=== PATIENT | male | born 1980 | race Two or more races ===

== ENCOUNTER 2020-09-16 20:37 | Emergency (ER) | payer MEDICAID ==
[~2020-09-16] VITALS: Ht 172.7 cm; Wt 86.2 kg
[2020-09-16 20:46] VITALS: BP 142/85
== END 2020-09-16 22:12 | disposition left against medical advice (07) ==
LOC: ER 20:44
DX: S61.214A Laceration without foreign body of right ring finger without damage to nail, initial encounter (principal); Z53.21 Procedure and treatment not carried out due to patient leaving prior to being seen by health care provider; X58.XXXA Exposure to other specified factors, initial encounter; Y93.89 Activity, other specified; Y92.89 Other specified places as the place of occurrence of the external cause; Y99.8 Other external cause status
CPT/HCPCS: 73130

== ENCOUNTER 2020-09-17 07:44 | Emergency (ER) | payer MEDICAID ==
[~2020-09-17] VITALS: Ht 172.7 cm; Wt 86.2 kg
[2020-09-17 08:15] VITALS: BP 150/75
== END 2020-09-17 09:03 | disposition home or self-care (01) ==
LOC: ER 07:44
DX: S61.212D Laceration without foreign body of right middle finger without damage to nail, subsequent encounter (principal); X58.XXXD Exposure to other specified factors, subsequent encounter
CPT/HCPCS: 12001

== ENCOUNTER 2023-09-21 16:00 | Emergency (ER) | payer MEDICAID ==
[~2023-09-21] VITALS: Ht 172.7 cm; Wt 91.5 kg
[2023-09-21] MEDS ORDERED: IBUP-1455 PO (18:41)
[2023-09-21] MEDS ORDERED: ACET500T58 PO (18:41)
[2023-09-21] MEDS: TETANUS-DIPTH-ACEL PERTUSSIS 0.5ML SYR Tdap IM ONE (20:34)
[2023-09-21 20:40] VITALS: BP 130/81; PULSE 76; RESP 18; TEMP 98.1; O2SAT 92
== END 2023-09-21 20:43 | disposition home or self-care (01) ==
LOC: ER 16:00
DX: S01.81XA Laceration without foreign body of other part of head, initial encounter (principal); W22.8XXA Striking against or struck by other objects, initial encounter; Y93.89 Activity, other specified; Y92.89 Other specified places as the place of occurrence of the external cause; Y99.8 Other external cause status
CPT/HCPCS: 12011; 90471; 90715

== ENCOUNTER 2024-02-17 11:33 | Emergency (ER) | payer MEDICAID ==
[~2024-02-17] VITALS: Ht 172.7 cm; Wt 87.9 kg
[~2024-02-17 11:33] MED LIST: ACET500T58 PO; IBUP-1455 PO
[2024-02-17 12:10] VITALS: BP 157/79; PULSE 88; RESP 17; TEMP 97.7; O2SAT 97
[2024-02-17] MEDS: LIDOCAINE 1% HCL (LOCAL ANESTH.) INJ 20ML MDV IJ ONE (12:33)
== END 2024-02-17 12:35 | disposition home or self-care (01) ==
LOC: ER 11:33
DX: S61.512A Laceration without foreign body of left wrist, initial encounter (principal); Z79.899 Other long term (current) drug therapy; W45.8XXA Other foreign body or object entering through skin, initial encounter; Y93.89 Activity, other specified; Y92.096 Garden or yard of other non-institutional residence as the place of occurrence of the external cause; Y99.8 Other external cause status
CPT/HCPCS: 12002

== ENCOUNTER 2024-03-02 11:44 | Emergency (ER) | payer MEDICAID ==
[~2024-03-02] VITALS: Ht 172.7 cm; Wt 86.8 kg
[2024-03-02 13:20] VITALS: BP 126/92; PULSE 94; RESP 18; TEMP 98.2; O2SAT 97
== END 2024-03-02 13:30 | disposition home or self-care (01) ==
LOC: ER 11:44
DX: S51.812D Laceration without foreign body of left forearm, subsequent encounter (principal); X58.XXXD Exposure to other specified factors, subsequent encounter

== ENCOUNTER 2024-08-16 15:38 | Emergency (ER) | payer MEDICAID ==
[~2024-08-16] VITALS: Ht 175.3 cm; Wt 109.0 kg
--- NOTE | 2024-08-16 15:55 | ED.PDOC ---
History of Present Illness HPI Comments 44 Y M with PMHX of anxiety and asthma presents to the ED with CC of syncope. Patient, presented to ED with for CC vaginal bleed; [facility] patient fainted. Patient states , that he believes he fainted due to anxiety regarding his 's current condition. Patient denies chest pain, shortness of breath, or hitting his head. Chief Complaint: Syncope Time Seen by MD: 15:40 Primary Care Provider: UNKNOWN Reviewed Notes: Nurses Notes, Medications, Allergies Allergies: Uncoded Allergies: seafood (Allergy, Unknown, 09/16/20) Home Meds Active Scripts Acetaminophen (Acetaminophen) 500 Mg Tab, 500 MG PO Q4HP PRN, #20 TAB Prov:LUÍS LEOS PAC 09/21/23 Ibuprofen Micronized (Ibuprofen) 800 Mg Tab, 800 MG PO Q8HP PRN, #20 TAB Prov:LUÍS LEOS PAC 09/21/23 Information Source: Patient Mode of Arrival: Ambulatory Severity: Mild Timing: Minutes Duration: Since onset Prehospital treatment: None Past Medical History PAST MEDICAL HISTORY: Anxiety, Asthma, Denies Surgical History: Denies all surgeries Family History Family History: Reviewed,noncontributory to illness Social History Smoker: Non-Smoker Alcohol: Denies ETOH Use Drugs: Denies Drug Use Lives In: Home Constitutional: reports: weakness; denies: chills, diaphoresis, fatigue, fever, malaise, sweats, others EENTM: denies: blurred vision, double vision, ear bleeding, ear discharge, ear drainage, ear pain, ear ringing, eye pain, eye redness, hearing loss, mouth pain, mouth swelling, nasal discharge, nose bleeding, nose congestion, nose pain, photophobia, tearing, throat pain, throat swelling, voice changes, others Respiratory: reports: shortness of breath; denies: cough, hemoptysis, orthopnea, SOB at rest, SOB with excertion, stridor, wheezing, others Cardiovascular: denies: chest pain, dizzy spells, diaphoresis, Dyspnea on exertion, edema, irregular heart beat, left arm pain, lightheadedness, palpitations, PND, syncope, others Gastrointestinal: denies: abdomen distended, abdominal pain, blood streaked bowels, constipated, diarrhea, dysphagia, difficulty swallowing, hematemesis, melena, nausea, poor appetite, poor fluid intake, rectal bleeding, rectal pain, vomiting, others Genitourinary: denies: burning, dysuria, flank pain, frequency, hematuria, incontinence, penile discharge, penile sore, pain, testicle pain, testicle swelling, urgency, others Neurological: denies: dizziness, fainting, headache, left sided numbness, left sided weakness, numbness, paresthesia, pre-existing deficit, right sided numbness, right sided weakness, seizure, speech problems, tingling, tremors, weakness, others Musculoskeletal: denies: back pain, gout, joint pain, joint swelling, muscle pain, muscle stiffness, neck pain, others Integumetry: denies: bruises, change in color, change in hair/nails, dryness, laceration, lesions, lumps, rash, wounds, others Allergic/Immunocompromised: denies: Difficulty Healing, Frequent Infections, Hives, Itching, others Hematologic/Lymphatic: denies: anemia, blood clots, easy bleeding, easy bruising, swollen glands, others Endocrine: denies: excessive hunger, excessive sweating, excessive thirst, excessive urination, flushing, intolerance to cold, intolerance to heat, unexplained weight gain, unexplained weight loss, others Psychiatric: denies: anxiety, bipolar disorder, depression, hopeless, panic disorder, schizophrenia, sleepless, suicidal, others All Other Systems: Reviewed and Negative Physical Exam General Appearance: Moderate Distress HEENT: Normal ENT Inspection, Pharynx Normal, TMs Normal Neck: Full Range of Motion, Non-Tender, Normal, Normal Inspection Respiratory: Chest Non-Tender, Decreased Breath Sounds, No Accessory Muscle Use, Wheezing Cardiovascular: No Edema, No JVD, No Murmur, No Gallop, Normal Peripheral Pulses, Regular Rate/Rhythm Breast Exam: Deferred Gastrointestinal: No Organomegaly, Non Tender, No Pulsatile Mass, Normal Bowel Sounds, Soft Genitalia: Deferred Pelvic: Deferred Rectal: Deferred Extremities: No calf tenderness, Normal capillary refill, Normal inspection, Normal range of motion, Non-tender, No pedal edema Musculoskeletal : Apperance: Normal Neurologic: 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 Was a procedure done?: No EKG EKG : Pulse Rate (adult): 90 [place]: Normal Cardiac Rhythm: NSR Block: None Hypertrophy: RVH ST: Normal Differential Dx Considerations may include: ANXIETY ATTACK, ASTHMA ATTACK, SYNCOPAL EPISODE X-Ray, Labs, Meds, VS Vital Signs Date Time Temp Pulse Resp B/P (MAP) Pulse Ox O2 Delivery O2 Flow Rate FiO2 08/16/24 15:55 90 08/16/24 15:48 90 08/16/24 15:43 98.0 77 20 160/95 (116) 100 08/16/24 15:41 12 73 Nasal Cannula* 4 36 Lab Test 08/16/24 16:55 08/16/24 16:41 08/16/24 15:52 Range/Units Sodium Level 140 136-145 mmol/L Potassium Level 3.5 3.5-5.1 mmol/L Chloride Level 105 98-107 mmol/L Carbon Dioxide Level 28 20-31 mmol/L Anion Gap 7 5-15 Blood Urea Nitrogen 18 9-23 mg/dL Creatinine 0.98 0.700-1.30 mg/dL Glomerular Filtration Rate Calc 97 >90 mL/min BUN/Creatinine Ratio 18.4 10.0-20.0 Serum Glucose 103 74-106 mg/dL Calcium Level 9.4 8.7-10.4 mg/dL Plasma/Serum Blood Alcohol < 3.0 <10 mg/dL Urine Color Yellow Yellow Urine Clarity Clear Clear Urine pH 6.5 5.0-9.0 Urine Specific [place] 1.024 1.001-1.035 Urine Protein Negative Negative Urine Ketones Negative Negative Urine Blood Negative Negative /uL Urine Nitrite Negative Negative Urine Bilirubin Negative Negative Urine Urobilinogen Normal Negative mg/dL Urine Leukocyte Esterase Negative Negative /uL Urine RBC 4 0 - 3 /hpf Urine WBC 1 0 - 3 /hpf Urine Squamous Epithelial Cells None seen <5 /hpf Urine Bacteria None seen None Seen /hpf Urine Glucose Normal Normal mg/dL Urine Opiates Screen Neg NEGATIVE Urine Fentanyl Screen Neg NEGATIVE Urine Barbiturates Screen Neg NEGATIVE Urine Phencyclidine Screen Neg NEGATIVE Urine Amphetamines Screen Neg NEGATIVE Urine Benzodiazepines Screen Neg NEGATIVE Urine Cocaine Screen Neg NEGATIVE Urine Cannabinoids Screen Neg NEGATIVE White Blood Count 8.2 4.4-10.8 10^3/uL Red Blood Count 5.25 4.5-5.90 10^6/uL Hemoglobin 16.4 13.5-17.5 g/dL Hematocrit 46.8 41.0-53.0 % Mean Corpuscular Volume 89.0 80.0-100.0 fL Mean Corpuscular Hemoglobin 31.2 28.0-32.0 pg Mean Corpuscular Hemoglobin Concent 35.0 32.0-36.0 g/dL Red Cell Distribution Width 13.3 11.8-14.3 % Platelet Count 214 140-450 10^3/uL Mean Platelet Volume 9.3 6.9-10.8 fL Neutrophils (%) (Auto) 57.3 37.0-80.0 % Lymphocytes (%) (Auto) 35.7 10.0-50.0 % Monocytes (%) (Auto) 5.9 0.0-12.0 % Eosinophils (%) (Auto) 0.8 0.0-7.0 % Basophils (%) (Auto) 0.3 0.0-2.0 % Neutrophils # (Auto) 4.7 1.6-8.6 10 ^3/uL Lymphocytes # (Auto) 2.9 0.4-5.4 10 ^3/uL Monocytes # (Auto) 0.5 0-1.3 10 ^3/uL Eosinophils # (Auto) 0.1 0-0.8 10 ^3/uL Basophils # (Auto) 0 0-0.2 10 ^3/uL Nucleated Red Blood Cells 1.0 % Current Medications Medications (Trade) Dose Ordered Sig/Lis Route Start Time Stop Time Status Last Admin Sodium Chloride 1,000 ml @ 1,000 mls/hr Q1H ONCE IVB 08/16/24 15:45 08/16/24 16:44 DC 08/16/24 15:57 Methylprednisolone Sodium Succinate (Solu Medrol) 125 mg ONCE ONCE IV 08/16/24 16:00 08/16/24 16:01 DC 08/16/24 15:57 Albuterol (Ventolin Medneb) 5 mg ONCE ONCE NEB 08/16/24 15:51 08/16/24 15:52 DC 08/16/24 15:58 Ipratropium [place] (Atrovent Medneb) 1 mg ONCE ONCE NEB 08/16/24 15:51 08/16/24 15:52 DC 08/16/24 15:58 CT scan of the head is within normal limits. The patient's chest x-ray is negative The CBC and chemistry panel are within normal limits The urine test is negative The urine tox is negative At this time, the patient was being discharged with a diagnosis of asthma exacerbation an episode of syncope The patient will return to the emergency department's the condition worsens. Images Reviewed?: Images reviewed and evaluated by me Time of 1ST Reevaluation: 16:10 Reevaluation 1ST: Unchanged Patient Education/Counseling: Diagnosis, Treatment, Prognosis, Need For Follow Up Family Education/Counseling: No Family Present Additional Information - I reviewed the following notes from patient's past medical encounters: 03/02/24 Dx: encounter for removal of sutures - The following tests were ordered, and results were reviewed by me: Labs, CXR, HEAD CT - Additional information was gathered from interviewing the following independent Historian: FAMILY - I reviewed and agreed with the following test results read by other provider: CXR, CT - I discussed treatments and results with medical personnel and family. Departure 1 Departure Time of Disposition: 18:12 Impression: Primary Impression: Episode of syncope Qualified Codes: R55 - Syncope and collapse Additional Impression: Asthma exacerbation Qualified Codes: J45.21 - Mild intermittent asthma with (acute) exacerbation Disposition: 01 HOME / SELF CARE / HOMELESS Condition: Fair Discharged With: Self Critical Care Note Critical Care Time?: No Stability Stability form required: No Heart Score Heart Score: Heart Score Response (Comments) Value History N/A 0 EKG N/A 0 Age N/A 0 Risk Factors N/A 0 Troponin N/A 0 Total 0 I personally scribed for GENESIS GARCIA MD ([email or web address]) on 08/16/24 at 15:55. Electronically submitted by Jessica Martinez ([email or web address]). I personally scribed for GENESIS GARCIA MD ([email or web address]) on 08/16/24 at 16:08. Electronically submitted by Jessica Martinez ([email or web address]). GENESIS GARCIA MD Aug 16, 2024 15:55
[2024-08-16] MEDS: SODIUM CHLORIDE 0.9% 1,000 ML IVB ONE (15:57)
[2024-08-16] MEDS: methylPREDNISolone SOD SUCC 125 MG/2 ML VL IV ONE (15:57)
[2024-08-16] MEDS: IPRATROPIUM BROM 0.5 MG/2.5ML INH SOL NEB ONE (15:58)
[2024-08-16] MEDS: ALBUTEROL SULF 2.5 MG/0.5ML(0.5%) NEB SOLN NEB ONE (15:58)
[2024-08-16 16:16] LABS: Basophils # (auto) 0 10 ^3/uL (0-0.2); Basophils % (auto) 0.3 % (0.0-2.0); Eosinophils # (auto) 0.1 10 ^3/uL (0-0.8); Eosinophils % (auto) 0.8 % (0.0-7.0); Hematocrit 46.8 % (41.0-53.0); Hemoglobin 16.4 g/dL (13.5-17.5); Lymphocytes # (auto) 2.9 10 ^3/uL (0.4-5.4); Lymphocytes % (auto) 35.7 % (10.0-50.0); Mean Corpuscular Hemoglobin 31.2 pg (28.0-32.0); Monocytes # (auto) 0.5 10 ^3/uL (0-1.3); Monocytes % (auto) 5.9 % (0.0-12.0); Neutrophils # (auto) 4.7 10 ^3/uL (1.6-8.6); Neutrophils % (auto) 57.3 % (37.0-80.0); Platelet Count (auto) 214 10^3/uL (140-450); Red Blood Cells 5.25 10^6/uL (4.5-5.90); Red Cell Distribution Width 13.3 % (11.8-14.3); White Blood Cell 8.2 10^3/uL (4.4-10.8)
--- NOTE | 2024-08-16 16:50 | DVH ---
CHEST RADIOGRAPH Indication: weakness Technique: Single frontal view of the chest was obtained Comparison: None FINDINGS: Lines and Tubes: None Lungs: No focal consolidation. Pleura: No effusion. No pneumothorax. Cardiomediastinal contours: Unremarkable Bones: No acute osseous abnormality. IMPRESSION: 1. No acute cardiopulmonary disease.
--- NOTE | 2024-08-16 16:50 | DVH ---
EXAM: CT HEAD WITHOUT CONTRAST HISTORY: aloc COMPARISON: None TECHNIQUE: Axial images of the head were obtained and reformatted in coronal and sagittal planes. All CT scans at this medical facility are performed using dose modulation techniques as appropriate t o a performed exam including the following: Automated exposure control was utilized; adjustment of th e MA and/or KV according to patient size; and use of iterative reconstruction technique. CT Dose: CTDI volume is 66.04 mGy. Dose-length product is 1169.16 mGy*cm FINDINGS: There is no evidence of acute intracranial hemorrhage, mass, mass effect midline shift. There is no h ydrocephalus or extra-axial fluid collection. Skinner-white matter differentiation is maintained. The visualized paranasal sinuses and mastoid air cells are clear. The calvarium is intact. IMPRESSION: 1. No acute intracranial process. HS:Y
[2024-08-16 17:17] LABS: Urine Bacteria None Seen /hpf (None Seen)
[2024-08-16 17:36] LABS: Anion Gap 7 (5-15); BUN/Creatinine Ratio 18.4 (10.0-20.0)
[2024-08-16 17:37] LABS: Blood Urea Nitrogen 18 mg/dL (9-23); Calcium 9.4 mg/dL (8.7-10.4); Carbon Dioxide 28 mmol/L (20-31); Chloride 105 mmol/L (98-107); Glucose 103 mg/dL (74-106); Potassium 3.5 mmol/L (3.5-5.1); Sodium 140 mmol/L (136-145)
[2024-08-16 17:38] LABS: Blood Alcohol < 3.0 mg/dL (<10)
[2024-08-16 17:45] LABS: Amphetamine Screen, Urine Neg (NEGATIVE); Benzodiazephine Screen, Urine Neg (NEGATIVE); Urine Blood Negative /uL (Negative); Urine Clarity Clear (Clear); Urine Color Yellow (Yellow); Urine Protein, UAD Negative (Negative); Urine Specific Gravity 1.024 (1.001-1.035); Urine Squamous Epithelial Cell None Seen /hpf (<5); Urine Urobilinogen Normal (Negative); Urine WBC 1 /hpf (0 - 3); Urine pH 6.5 (5.0-9.0)
[2024-08-16 17:46] LABS: Barbiturate Scree,Urine Neg (NEGATIVE); Cannabinoid Screen, Urine Neg (NEGATIVE); Cocaine Screen, Urine Neg (NEGATIVE); Opiate Scree,Urine Neg (NEGATIVE); Phencyclidine Screen, Urine Neg (NEGATIVE)
[2024-08-16 18:39] VITALS: PULSE 88; RESP 18; O2SAT 98
[2024-08-16 18:53] VITALS: BP 128/68; PULSE 69; RESP 16; O2SAT 96
--- NOTE | 2024-08-17 07:48 | ECG ---
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
== END 2024-08-16 19:09 | disposition home or self-care (01) ==
LOC: ER 15:38
DX: R55 Syncope and collapse (principal); J45.901 Unspecified asthma with (acute) exacerbation; F41.9 Anxiety disorder, unspecified; Z79.899 Other long term (current) drug therapy; Z91.013 Allergy to seafood
CPT/HCPCS: 36415; 70450; 71045; 80048; 80307; 80320; 81001; 85025; 93005; 94640; 96361; 96374; 99285; J2919; J7030

== ENCOUNTER 2025-01-08 18:45 | Emergency (ER) | payer MEDICAID ==
[~2025-01-08] VITALS: Ht 172.7 cm; Wt 89.8 kg
[2025-01-08 19:38] VITALS: BP 149/95; PULSE 89; RESP 96; TEMP 98.4; O2SAT 20
[2025-01-08] MEDS ORDERED: IBUP-1456 PO (19:50)
[2025-01-08] MEDS ORDERED: AMOX875T4 PO (19:50)
--- NOTE | 2025-01-08 19:50 | ED.PDOC ---
History of Present Illness(SKN HPI Comments 44-year-old male presents to ER with complaints of dog bite x1 day. Patient states that he was bit by his dog on his left index finger yesterday evening and has since been experiencing pain/swelling/redness and intermittent yellow drainage surrounding nail bed of left index finger. He rates his current pain an 8/10 to left index finger without radiation. Denies use of medications for current symptoms and states he is unsure when his last tetanus shot was. Denies fever, body aches, chills, numbness/tingling, foreign body sensation or any further symptoms/complaints Chief Complaint: Animal Bite Time Seen by MD: 19:05 Primary Care Provider: YARELY History of Present Illness: Nurses Notes, Medications, Allergies Allergies: Uncoded Allergies: seafood (Allergy, Unknown, 09/16/20) Home Meds Active Scripts Ibuprofen (Ibuprofen) 800 Mg Tab, 1 TAB PO TID PRN, #30 TAB 0 Refills Prov:QUYEN ALLISON 01/08/25 Amoxicillin & Pot Clavulanate (Amoxicillin/Potassium Cla) 875 Mg Tab, 1 TAB PO BID for 7 Days, #14 TAB 0 Refills Prov:QUYEN ALLISON 01/08/25 Acetaminophen (Acetaminophen) 500 Mg Tab, 500 MG PO Q4HP PRN, #20 TAB Prov:LUÍS LEOS PAC 09/21/23 Ibuprofen Micronized (Ibuprofen) 800 Mg Tab, 800 MG PO Q8HP PRN, #20 TAB Prov:LUÍS LEOS PAC 09/21/23 Information Source: Patient Mode of Arrival: Ambulatory Past Medical History PAST MEDICAL HISTORY: Anxiety, Asthma, Denies Surgical History (Other): Left wrist surgery Family History Family History: Unknown Social History Smoker: Non-Smoker Alcohol: Denies ETOH Use Drugs: Denies Drug Use Lives In: Home Constitutional: denies: chills, diaphoresis, fatigue, fever, malaise, sweats, weakness, others EENTM: denies: blurred vision, double vision, ear bleeding, ear discharge, ear drainage, ear pain, ear ringing, eye pain, eye redness, hearing loss, mouth pain, mouth swelling, nasal discharge, nose bleeding, nose congestion, nose pain, photophobia, tearing, throat pain, throat swelling, voice changes, others Respiratory: denies: cough, hemoptysis, orthopnea, SOB at rest, shortness of breath, SOB with excertion, stridor, wheezing, others Cardiovascular: denies: chest pain, dizzy spells, diaphoresis, Dyspnea on exertion, edema, irregular heart beat, left arm pain, lightheadedness, palpitations, PND, syncope, others Gastrointestinal: denies: abdomen distended, abdominal pain, blood streaked bowels, constipated, diarrhea, dysphagia, difficulty swallowing, hematemesis, melena, nausea, poor appetite, poor fluid intake, rectal bleeding, rectal pain, vomiting, others Genitourinary: denies: burning, dysuria, flank pain, frequency, hematuria, incontinence, penile discharge, penile sore, pain, testicle pain, testicle swelling, urgency, others Neurological: denies: dizziness, fainting, headache, left sided numbness, left sided weakness, numbness, paresthesia, pre-existing deficit, right sided numbness, right sided weakness, seizure, speech problems, tingling, tremors, weakness, others Musculoskeletal: denies: back pain, gout, joint pain, joint swelling, muscle pain, muscle stiffness, neck pain, others Integumetry: reports: others (As stated in HPI) Allergic/Immunocompromised: denies: Difficulty Healing, Frequent Infections, Hives, Itching, others Hematologic/Lymphatic: denies: anemia, blood clots, easy bleeding, easy bruising, swollen glands, others Endocrine: denies: excessive hunger, excessive sweating, excessive thirst, excessive urination, flushing, intolerance to cold, intolerance to heat, unexplained weight gain, unexplained weight loss, others Psychiatric: denies: anxiety, bipolar disorder, depression, hopeless, panic disorder, schizophrenia, sleepless, suicidal, others Physical Exam General Appearance: No Apparent Distress HEENT: PERRL/EOMI Neck: Full Range of Motion, Non-Tender, Normal Respiratory: Chest Non-Tender, Lungs Clear, No Accessory Muscle Use, No Respiratory Distress, Normal Breath Sounds Cardiovascular: No Murmur, No Gallop, Regular Rate/Rhythm Breast Exam: Deferred Gastrointestinal: NOT DONE Genitalia: Deferred Pelvic: Deferred Rectal: Deferred Extremities: Normal capillary refill, Normal range of motion Musculoskeletal : Extremity Location: Finger 2 (1 cm abrasion and mild swelling/erythema/TTP noted surrounding nailbed of left index finger. No fluctuance/drainage/red streaking/further skin changes noted. Patient able to fully move all fingers of left hand. Pulses intact) Neurologic: Alert, No Motor Deficits, Normal Affect, Normal Mood, No Sensory Deficits Cerebellar Function: Normal Reflexes: Normal Skin: Dry, Warm Peripheral Pulses: 2+ Radial (R), 2+ Radial (L), 2+ Brachial (R), 2+ Brachial (L) Lymphatic: No Adenopathy Was a procedure done? Was a procedure done?: No Sedation Sedation?: No Differential Diagnosis (INTG) Differential Diagnosis: Fracture Differential Diagnosis: Laceration, Retained Foreign Body X-Ray, Labs, Meds, VS Vital Signs Date Time Temp Pulse Resp B/P (MAP) Pulse Ox O2 Delivery O2 Flow Rate FiO2 01/08/25 19:38 98.4 89 96 149/95 (113) 20 98.4 01/08/25 19:38 Room Air* 0 21 01/08/25 18:52 98.4 89 20 149/95 (113) 96 98.4 Current Medications Medications (Trade) Dose Ordered Sig/Lis Route Start Time Stop Time Status Last Admin Ceftriaxone Sodium (Rocephin) 1,000 mg ONCE ONCE IM 01/08/25 20:00 01/08/25 20:01 DC 01/08/25 20:09 Diphtheria/ Tetanus/Acell Pertussis (Boostrix T-Dap) 0.5 ml ONCE ONCE IM 01/08/25 20:00 01/08/25 20:01 DC 01/08/25 20:11 PATIENT: ELLIE GREGORYCCT: [id number]: [id number] : 1980 LOC: ER ROOM / BED: / AGE / SEX: 44 / M ADM STATUS: REG ER SERVICE 295 ORDERING PHYSICIAN: QUYEN ALLISON PROCEDURE(s): LFIN2 - L 2ND FINGER XRAY REASON: left 2nd finger pain ORDER NUMBER(s): [id number], ACCESSION NUMBER(s): [id number] EXAMINATIONS: 2 views of the left hand - 2nd digit CLINICAL HISTORY: left 2nd finger pain COMPARISON: None Findings and impression: No grossly displaced fractures, dislocations or bony destructive changes are evident on the provided views. No sizable, radiopaque foreign bodies noted. If the patient has continued symptoms clinically suspicious for radiographically occult fracture, follow-up radiographs could be obtained in 7-10 days time. ATED BY: DEVIN DAMICO MD DICTATED DATE/TIME: 01/08/252106 SIGNED BY: DEVIN DAMICO MD SIGNED DATE/TIME: 01/08/252106 CC: Left index finger x-ray reviewed Rocephin 1 g IM ordered Tdap 0.5 mL IM ordered Wound care/cleaning discussed and advised Advised to follow up with PCP in 1-2 days Patient verbalized understanding and agreeable with current plan of care Advised to return to ER immediately if symptoms worsen Images Reviewed?: Images reviewed and evaluated by me Time of 1ST Reevaluation: 19:20 Reevaluation 1ST: N/A Patient Education/Counseling: Diagnosis, Treatment, Prognosis, Need For Follow Up Family Education/Counseling: No Family Present Departure 1 Departure Time of Disposition: 19:42 Impression: Primary Impression: Paronychia of left index finger Additional Impression: Dog bite of index finger Qualified Codes: S61.258A - Open bite of other finger without damage to nail, initial encounter; W54.0XXA - Bitten by dog, initial encounter Disposition: 01 HOME / SELF CARE / HOMELESS Condition: Stable e-Prescriptions Ibuprofen (Ibuprofen) 800 Mg Tab 1 TAB PO TID PRN, #30 TAB 0 Refills Prov: QUYEN ALLISON 01/08/25 Amoxicillin & Pot Clavulanate (Amoxicillin/Potassium Cla) 875 Mg Tab 1 TAB PO BID for 7 Days, #14 TAB 0 Refills Prov: QUYEN ALLISON 01/08/25 Discharged With: Self Critical Care Note Critical Care Time?: No Stability Stability form required: No Heart Score Heart Score: Heart Score Response (Comments) Value History N/A 0 EKG N/A 0 Age N/A 0 Risk Factors N/A 0 Troponin N/A 0 Total 0 QUYEN ALLISON Jan 08, 2025 19:50
[2025-01-08] MEDS: TETANUS-DIPTH-ACEL PERTUSSIS 0.5ML SYR Tdap IM ONE (20:09)
[2025-01-08] MEDS: cefTRIAXone SOD 1,000 MG VL IM ONE (20:09)
--- NOTE | 2025-01-08 21:09 | DVH ---
EXAMINATIONS: 2 views of the left hand - 2nd digit CLINICAL HISTORY: left 2nd finger pain COMPARISON: None Findings and impression: No grossly displaced fractures, dislocations or bony destructive changes are evident on the provided views. No sizable, radiopaque foreign bodies noted. If the patient has continued symptoms clinically suspicious for radiographically occult fracture, fol low-up radiographs could be obtained in 7-10 days time.
== END 2025-01-08 21:03 | disposition home or self-care (01) ==
LOC: ER 18:45
DX: S61.251A Open bite of left index finger without damage to nail, initial encounter (principal); L03.012 Cellulitis of left finger; F41.9 Anxiety disorder, unspecified; J45.909 Unspecified asthma, uncomplicated; Z98.890 Other specified postprocedural states; Z91.013 Allergy to seafood; Z79.899 Other long term (current) drug therapy; Z23 Encounter for immunization; W54.0XXA Bitten by dog, initial encounter; Y93.89 Activity, other specified; Y92.89 Other specified places as the place of occurrence of the external cause; Y99.8 Other external cause status
CPT/HCPCS: 73140; 90471; 90715; 96372; 99284; J0696